=== PATIENT | female | born 2000 | race American Indian/Alaskan Native ===

== ENCOUNTER 2018-09-09 17:00 | Emergency (ER) | payer OTHER ==
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
[2018-09-09 18:24] VITALS: BP 112/59
[2018-09-09] MEDS ORDERED: IBUPROFEN PO ONE (18:27)
--- NOTE | 2018-09-09 19:44 | XRay Report ---
PROCEDURE: XR SPINE CERVICAL 2-3V TECHNIQUE: Frontal, lateral, swimmer's and odontoid views cervical spine HISTORY: neck robyn COMPARISONS: None FINDINGS: Visualization of detail of portions of the cervical spine is significantly limited by artifact create d by overlying structures (braces). There is reversal of the normal lordotic curve of the cervical spine. The vertebral heights and disc spaces are maintained. There is no evidence of fracture or subluxation. The paraspinous soft tissues are unremarkable. IMPRESSION: 1. Study significantly degraded by artifact. 2. Reversal of the normal lordotic curve of the cervical spine. This can be seen with muscle spasm. 3. No plain film evidence of fracture or subluxation. However, cervical spine fractures can be missed with plain film imaging. If there is a clinical concern for fracture, CT imaging is recommended. This document is electronically signed by Harriet Cummings MD., September 09 2018 07:42:35 PM ET
== END 2018-09-09 20:04 | disposition home or self-care (01) ==
LOC: ED 17:00
DX: S13.4XXA Sprain of ligaments of cervical spine, initial encounter (principal); V89.2XXA Person injured in unspecified motor-vehicle accident, traffic, initial encounter; Y93.89 Activity, other specified; Y92.488 Other paved roadways as the place of occurrence of the external cause; Y99.8 Other external cause status
CPT/HCPCS: 72040; 99283

== ENCOUNTER 2021-08-10 23:00 | Emergency (ER) | payer OTHER ==
[2021-08-11] MEDS ORDERED: ACETAMINOPHEN 500 MG TAB PO ONE (02:41)
[2021-08-11] MEDS ORDERED: IBUPROFEN 600 MG TAB PO ONE (02:41)
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
[2021-08-11 03:52] VITALS: BP 113/78
== END 2021-08-11 03:50 | disposition home or self-care (01) ==
LOC: ED 23:00
DX: S29.012A Strain of muscle and tendon of back wall of thorax, initial encounter (principal); V89.2XXA Person injured in unspecified motor-vehicle accident, traffic, initial encounter; Y93.89 Activity, other specified; Y92.89 Other specified places as the place of occurrence of the external cause; Y99.8 Other external cause status
CPT/HCPCS: 99282